=== PATIENT | female | born 1995 | race Caucasian/White ===

== ENCOUNTER 2021-06-18 23:42 | Emergency (ER) | payer OTHER, SELFPAY ==
[~2021-06-18] VITALS: Ht 152.4 cm; Wt 78.0 kg
[2021-06-19] MEDS ORDERED: MORPHINE SULFATE 4 MG/ML CPJ (NOT FOR IM USE) IV STA (00:22)
[2021-06-19] MEDS ORDERED: ONDANSETRON HCL 4MG/2ML INJ IV STA (00:22)
[2021-06-19] MEDS ORDERED: SODIUM CHLORIDE 0.9% 1,000 ML IV ONE (00:30)
[2021-06-19] MEDS ORDERED: METOCLOPRAMIDE HCL 10MG/2ML VIAL IV ONE (00:45)
[2021-06-19 01:00] LABS: BASOPHILS % 0.3 % (0.0-2.0); EOSINOPHILS % 0.6 % (0.0-5.0); HEMATOCRIT. 35.5 % (36.0-48.0); HEMOGLOBIN. 12.2 g/dL (12.0-16.0); LYMPHOCYTES % 16.9 % (20.0-50.0); MEAN CORPUSCULAR HEMOGLOBIN 28.6 pg (28.0-32.0); MEAN PLATELET VOLUME 9.5 fl (7.4-10.4); MONOCYTES % 9.8 % (2.0-8.0); NEUTROPHILS % 72.4 % (40.0-76.0); PLATELET 201 x1000/uL (130-400); RED BLOOD CELL COUNT 4.27 mill/uL (4.2-5.4); RED CELL DISTRIBUTION WIDTH 13.8 % (11.6-14.6)
[2021-06-19 01:02] LABS: CHLORIDE 106 mEq/L (98-107)
[2021-06-19 01:26] LABS: CLARITY URINE CLEAR (CLEAR); COLOR URINE YELLOW (YELLOW); KETONES URINE NEGATIVE (NEGATIVE); LEUKOCYTE ESTERASE URINE 1+ (NEGATIVE); NITRITE URINE POSITIVE (NEGATIVE); OCCULT BLOOD URINE 3+ (NEGATIVE); PH URINE 6.5 (4.5-8.0); PROTEIN URINE 1+ (NEGATIVE); SPECIFIC GRAVITY URINE 1.013 (1.005-1.030)
[2021-06-19] MEDS ORDERED: CEPH500T MT (02:52)
[2021-06-19 03:09] VITALS: BP 110/63
== END 2021-06-19 03:11 | disposition home or self-care (01) ==
LOC: ER 23:42
DX: O26.892 Other specified pregnancy related conditions, second trimester (principal); O23.32 Infections of other parts of urinary tract in pregnancy, second trimester; N39.0 Urinary tract infection, site not specified; Z3A.18 18 weeks gestation of pregnancy
CPT/HCPCS: 36415; 76805; 80053; 81003; 81025; 83690; 85025; 87077; 87086; 87186; 96360; 99284; J7030

== ENCOUNTER 2021-09-28 21:37 | Inpatient (IN) | payer OTHER ==
[~2021-09-28] VITALS: Ht 152.4 cm; Wt 81.6 kg
[~2021-09-28 21:37] MED LIST: CEPH500T MT
[2021-09-28] MEDS ORDERED: ACETAMINOPHEN 325MG TABLET PO STA (22:46)
[2021-09-28] MEDS: ACETAMINOPHEN 325MG TABLET PO NR (22:58)
[2021-09-28] MEDS ORDERED: CEFTRIAXONE 1 G PREMIX 50 ML IV ONE (23:00)
[2021-09-28] MEDS ORDERED: SODIUM CHLORIDE 0.9% 1000ML BAG (SEPSIS BOLUS) IV ONE (23:00)
[2021-09-28 23:06] LABS: CLARITY URINE CLEAR (CLEAR); COLOR URINE YELLOW (YELLOW); KETONES URINE NEGATIVE (NEGATIVE); LEUKOCYTE ESTERASE URINE 3+ (NEGATIVE); NITRITE URINE NEGATIVE (NEGATIVE); OCCULT BLOOD URINE TRACE (NEGATIVE); PROTEIN URINE NEGATIVE (NEGATIVE); SPECIFIC GRAVITY URINE 1.003 (1.005-1.030); UROBILINOGEN URINE 0.2 E.U./dL (0.2-1.0)
[2021-09-28 23:11] LABS: BASOPHILS % 0.1 % (0.0-2.0); HEMATOCRIT. 37.7 % (36.0-48.0); HEMOGLOBIN. 12.8 g/dL (12.0-16.0); LYMPHOCYTES % 8.4 % (20.0-50.0); MEAN CORPUSCULAR HEMOGLOBIN 28.7 pg (28.0-32.0); MEAN CORPUSCULAR VOLUME 84.4 fL (81.0-99.0); MEAN PLATELET VOLUME 9.6 fl (7.4-10.4); MONOCYTES % 10.3 % (2.0-8.0); NEUTROPHILS % 81.2 % (40.0-76.0); PLATELET 185 x1000/uL (130-400); RED BLOOD CELL COUNT 4.46 mill/uL (4.2-5.4); RED CELL DISTRIBUTION WIDTH 13.7 % (11.6-14.6)
[2021-09-28 23:18] LABS: CHLORIDE 103 mEq/L (98-107)
[2021-09-28 23:19] LABS: PROTHROMBIN TIME 10.9 sec (9.6-11.0)
[2021-09-28 23:41] LABS: B-HCG QUANTITATIVE 9520 mIU/mL (<3)
[2021-09-28] MEDS ORDERED: POTASSIUM CHLORIDE INJ 40 MEQ in DEXT 5% WATER 250 ML IV ONE (23:45)
[2021-09-29] MEDS: KCL 20MEQ/100ML X 2 FOR TOTAL KCL 40MEQ/200ML IV SCH ×3 (00:27→02:41)
[2021-09-29] MEDS ORDERED: POTASSIUM CHLORIDE 20MEQ TABLET SR PO NR (00:30)
[2021-09-29] MEDS: ACETAMINOPHEN 325MG TABLET PO NR (01:13)
[2021-09-29] MEDS ORDERED: ACETAMINOPHEN 325MG TABLET PO ONE (01:15)
[2021-09-29] MEDS ORDERED: ACETAMINOPHEN 325MG TABLET PO PRN (11:30)
[2021-09-29] MEDS ORDERED: ONDANSETRON HCL 4MG/2ML INJ IV PRN (11:30)
[2021-09-29] MEDS: ACETAMINOPHEN 325MG TABLET PO PRN ×3 (11:40→23:11)
[2021-09-29] MEDS: SODIUM CHLORIDE 0.9% 1,000 ML IV SCH ×2 (11:54→23:13)
[2021-09-29 17:02] VITALS: BP 109/48
[2021-09-29] MEDS ORDERED: PREN1COM16 MT (17:28)
[2021-09-29 18:02] VITALS: BP 109/48
[2021-09-29 20:00] VITALS: BP 112/54
[2021-09-29] MEDS ORDERED: CEFTRIAXONE 1,000 MG in DEXTROSE 5% WATER 50 ML IV SCH (21:00)
[2021-09-29 23:00] VITALS: BP 100/49
[2021-09-29] MEDS ORDERED: CEFTRIAXONE 1 G PREMIX 50 ML IV SCH (23:00)
[2021-09-30] VITALS: BP 110/45
[2021-09-30 01:41] LABS: *AMPHETAMINES SCREEN URINE NEGATIVE (NEGATIVE); *BARBITURATES SCREEN URINE NEGATIVE (NEGATIVE); *BENZODIAZEPINES SCREEN URINE NEGATIVE (NEGATIVE); *COCAINE SCREEN URINE NEGATIVE (NEGATIVE); CANNABINOID URINE SCREEN NEGATIVE (NEGATIVE); METHADONE URINE SCREEN NEGATIVE (NEGATIVE); OPIATES URINE SCREEN NEGATIVE (NEGATIVE); PHENCYCLIDINE URINE SCREEN NEGATIVE (NEGATIVE)
[2021-09-30 04:00] VITALS: BP 96/51
[2021-09-30] MEDS: SODIUM CHLORIDE 0.9% 1,000 ML IV SCH ×3 (06:29→22:03)
[2021-09-30 07:15] LABS: CHLORIDE 108 mEq/L (98-107)
[2021-09-30 07:19] LABS: BASOPHILS % 0.1 % (0.0-2.0); EOSINOPHILS % 0.1 % (0.0-5.0); HEMATOCRIT. 33.6 % (36.0-48.0); LYMPHOCYTES % 9.6 % (20.0-50.0); MEAN CORPUSCULAR HEMOGLOBIN 27.8 pg (28.0-32.0); MONOCYTES % 13.2 % (2.0-8.0); PLATELET 147 x1000/uL (130-400); RED BLOOD CELL COUNT 3.96 mill/uL (4.2-5.4); RED CELL DISTRIBUTION WIDTH 13.8 % (11.6-14.6)
[2021-09-30 08:00] VITALS: BP 104/53
[2021-09-30] MEDS ORDERED: POTASSIUM CHLORIDE 20MEQ TABLET SR PO NR (10:45)
[2021-09-30] MEDS ORDERED: CEFEPIME 2,000 MG in DEXT 5% WATER 100 ML IV SCH (12:00)
[2021-09-30] MEDS: ACETAMINOPHEN 325MG TABLET PO PRN ×2 (13:42→21:38)
[2021-09-30] MEDS: CEFTRIAXONE 2 G in DEXTROSE 5% WATER 50 ML IV SCH (17:00)
[2021-09-30] MEDS ORDERED: CEFTRIAXONE 2 G PREMIX 50 ML IV SCH (19:00)
[2021-10-01 06:51] LABS: BASOPHILS % 0.2 % (0.0-2.0); EOSINOPHILS % 0.4 % (0.0-5.0); HEMATOCRIT. 32.3 % (36.0-48.0); HEMOGLOBIN. 10.9 g/dL (12.0-16.0); LYMPHOCYTES % 11.9 % (20.0-50.0); MEAN CORPUSCULAR HEMOGLOBIN 28.4 pg (28.0-32.0); MEAN CORPUSCULAR VOLUME 83.8 fL (81.0-99.0); MEAN PLATELET VOLUME 9.6 fl (7.4-10.4); MONOCYTES % 12.3 % (2.0-8.0); NEUTROPHILS % 75.2 % (40.0-76.0); PLATELET 153 x1000/uL (130-400); RED BLOOD CELL COUNT 3.86 mill/uL (4.2-5.4); RED CELL DISTRIBUTION WIDTH 13.8 % (11.6-14.6)
[2021-10-01 07:15] LABS: CHLORIDE 106 mEq/L (98-107)
[2021-10-01] MEDS: PRENATAL VIT/FE FUMARATE/FA TABLET PO SCH (08:31)
[2021-10-01] MEDS: FERROUS SULFATE 325MG TABLET PO SCH (08:31)
[2021-10-01] MEDS ORDERED: PRENATAL VIT/FE FUMARATE/FA TABLET PO SCH (09:00)
[2021-10-01] MEDS ORDERED: POTASSIUM CHLORIDE 20MEQ TABLET SR PO NR (11:30)
[2021-10-01] MEDS ORDERED: MAGNESIUM GLUCONATE 500MG TABLET PO NR (11:30)
[2021-10-01 16:44] VITALS: BP 106/55
[2021-10-01] MEDS: CEFTRIAXONE 2 G in DEXTROSE 5% WATER 50 ML IV SCH (16:51)
[2021-10-02 07:18] LABS: CHLORIDE 105 mEq/L (98-107)
[2021-10-02 07:40] LABS: BASOPHILS % 0.2 % (0.0-2.0); EOSINOPHILS % 0.8 % (0.0-5.0); HEMATOCRIT. 31.3 % (36.0-48.0); HEMOGLOBIN. 10.5 g/dL (12.0-16.0); LYMPHOCYTES % 18.3 % (20.0-50.0); MEAN CORPUSCULAR VOLUME 83.4 fL (81.0-99.0); MEAN PLATELET VOLUME 9.3 fl (7.4-10.4); MONOCYTES % 13.4 % (2.0-8.0); NEUTROPHILS % 67.3 % (40.0-76.0); PLATELET 173 x1000/uL (130-400); RED BLOOD CELL COUNT 3.75 mill/uL (4.2-5.4); RED CELL DISTRIBUTION WIDTH 13.9 % (11.6-14.6)
[2021-10-02] MEDS: FERROUS SULFATE 325MG TABLET PO SCH (08:10)
[2021-10-02] MEDS: PRENATAL VIT/FE FUMARATE/FA TABLET PO SCH (08:10)
[2021-10-02 09:15] VITALS: BP 100/51
[2021-10-02] MEDS ORDERED: MAGNESIUM 2 G PREMIX 50 ML IV NR (10:30)
[2021-10-02] MEDS ORDERED: POTASSIUM CHLORIDE 20MEQ TABLET SR PO NR (10:30)
[2021-10-02 13:17] VITALS: BP 93/52
[2021-10-02] MEDS: CEFTRIAXONE 2 G in DEXTROSE 5% WATER 50 ML IV SCH (16:52)
[2021-10-02 17:07] VITALS: BP 102/55
[2021-10-03] MEDS ORDERED: CEFT2VIA13 IV (04:47)
[2021-10-03 06:51] LABS: BASOPHILS % 0.2 % (0.0-2.0); EOSINOPHILS % 1.4 % (0.0-5.0); HEMATOCRIT. 32.1 % (36.0-48.0); HEMOGLOBIN. 10.8 g/dL (12.0-16.0); LYMPHOCYTES % 21.6 % (20.0-50.0); MEAN CORPUSCULAR HEMOGLOBIN 27.9 pg (28.0-32.0); MEAN CORPUSCULAR VOLUME 82.8 fL (81.0-99.0); MONOCYTES % 10.6 % (2.0-8.0); NEUTROPHILS % 66.2 % (40.0-76.0); PLATELET 203 x1000/uL (130-400); RED BLOOD CELL COUNT 3.88 mill/uL (4.2-5.4); RED CELL DISTRIBUTION WIDTH 13.8 % (11.6-14.6)
[2021-10-03 07:24] LABS: CHLORIDE 104 mEq/L (98-107)
[2021-10-03] MEDS ORDERED: LIDOCAINE HCL/PF 1% 10 MG/ML 5ML VIAL ONE (08:28)
[2021-10-03 08:30] VITALS: BP 88/52
[2021-10-03] MEDS: FERROUS SULFATE 325MG TABLET PO SCH (10:52)
[2021-10-03] MEDS: PRENATAL VIT/FE FUMARATE/FA TABLET PO SCH (10:53)
[2021-10-03] MEDS ORDERED: CEFTRIAXONE 2 G in DEXTROSE 5% WATER 50 ML IV SCH (14:00)
[2021-10-03] MEDS: CEFTRIAXONE 2 G in DEXTROSE 5% WATER 50 ML IV SCH (14:26)
[2021-10-03 14:38] VITALS: BP 90/60
== END 2021-10-03 15:00 | disposition home or self-care (01) | DRG 831 ==
LOC: ER 21:37 → EDBEDREQ 09-29 11:31 → ENRESERV 09-29 12:49 → 8WST 09-29 18:15 → 8EST NSY 09-30 11:22 → 8 EST A/PP 09-30 12:00
PROVIDERS: ADMIT Internal Medicine; ATTEND Specialist
PROC: B54MZZA Ultrasonography of Right Upper Extremity Veins, Guidance (ICD-10-PCS; principal; 2021-10-03)
PROC: 05HY33Z Insertion of Infusion Device into Upper Vein, Percutaneous Approach (ICD-10-PCS; 2021-10-03)
DX: O98.813 Other maternal infectious and parasitic diseases complicating pregnancy, third trimester (principal); A41.51 Sepsis due to Escherichia coli [E. coli]; E43 Unspecified severe protein-calorie malnutrition; N39.0 Urinary tract infection, site not specified; O23.43 Unspecified infection of urinary tract in pregnancy, third trimester; E87.1 Hypo-osmolality and hyponatremia; O98.313 Other infections with a predominantly sexual mode of transmission complicating pregnancy, third trimester; O99.283 Endocrine, nutritional and metabolic diseases complicating pregnancy, third trimester; O25.13 Malnutrition in pregnancy, third trimester; E87.6 Hypokalemia; O99.213 Obesity complicating pregnancy, third trimester; A63.0 Anogenital (venereal) warts; Z20.822 Contact with and (suspected) exposure to COVID-19; Z3A.34 34 weeks gestation of pregnancy
CPT/HCPCS: 36415; 36573; 76770; 76805; 76818; 80048; 80053; 80305; 81003; 83605; 83735; 84145; 84443; 84702; 85025; 87077; 87186; 87420; 87426; 87804; 93005; 93306; 99291; C1725; C1769; C9803; J0692; J0696; J3475; J3490; J7030; J7060